=== PATIENT | female | born 1960 | race Caucasian/White ===

== ENCOUNTER 2022-01-23 13:05 | Emergency (ER) | payer OTHER ==
[~2022-01-23] VITALS: Ht 162.6 cm; Wt 90.7 kg
[2022-01-23] MEDS ORDERED: IV NORMAL SALINE 1000 ML BAG IV ONE (13:30)
[2022-01-23] MEDS ORDERED: ACETAMINOPHEN ES 500 MG TABLET ONE (13:35)
[2022-01-23] MEDS ORDERED: ONDANSETRON 4 MG/2 ML VIAL ONE (13:38)
[2022-01-23 13:40] LABS: HEMATOCRIT 38.6 % (31.2-41.9); MEAN CORPUSCULAR HEMOGLOBIN 29.7 uug (24.7-32.8); MEAN CORPUSCULAR VOLUME 87.5 fL (75.5-95.3); PLATELET COUNT (AUTO) 215 K/uL (179-408)
[2022-01-23] MEDS ORDERED: ONDANSETRON 4 MG/2 ML VIAL IV ONE (13:45)
[2022-01-23 13:54] LABS: CARBON DIOXIDE 25 mmol/L (21-32); CHLORIDE 104 mmol/L (98-107); CREATININE 0.6 mg/dL (0.6-1.3); GLUCOSE 104 mg/dL (74-106); POTASSIUM 3.7 mmol/L (3.5-5.1); UREA NITROGEN, BLOOD 22 mg/dL (7-18)
[2022-01-23] MEDS: ACETAMINOPHEN ES 500 MG TABLET PO ONE ×2 (14:02→14:24)
--- NOTE | 2022-01-23 14:19 | NUR ---
X-ray conducted at bedside.
[2022-01-23 16:38] VITALS: BP 162/100
== END 2022-01-23 16:48 | disposition home or self-care (01) ==
LOC: ER 13:05
DX: R55 Syncope and collapse (principal); R03.0 Elevated blood-pressure reading, without diagnosis of hypertension; Z88.0 Allergy status to penicillin
CPT/HCPCS: 99285; 96374; 70450; 71045; 96361; 80048; 82962; 85025; 84484 ×3; 36415; 93005; J2405; J7040; A9150